=== PATIENT | male | born 1945 | race Caucasian/White ===

== ENCOUNTER 2018-06-02 05:46 | Emergency (ER) | payer MEDICARE, OTHER | END 2018-06-02 07:13 | disposition home or self-care (01) | LOC: FTE 05:46 | DX: R04.0 Epistaxis (principal) | CPT/HCPCS: 99282 ==

== ENCOUNTER 2018-06-02 08:55 | Emergency (ER) | payer MEDICARE, OTHER ==
[2018-06-02 10:17] LABS: ADD MAN DIFF? NO
[2018-06-02 10:22] LABS: BASOPHILS % 0.2 % (0.0-2.0); EOSINOPHILS # 0.3 10^3/ul (0.0-0.5); EOSINOPHILS % 5.2 % (0.0-7.0); HEMATOCRIT 41.7 % (42.0-52.0); HEMOGLOBIN 13.8 g/dl (14.0-18.0); LYMPHOCYTES # 1.3 10^3/ul (0.8-2.9); LYMPHOCYTES % 27.6 % (15.0-51.0); MEAN CORPUSCULAR HEMOGLOBIN 31.2 pg (29.0-33.0); MEAN CORPUSCULAR HGB CONC 33.1 g/dl (32.0-37.0); MEAN CORPUSCULAR VOLUME 94.3 fl (82.0-101.0); MEAN PLATELET VOLUME 9.7 fl (7.4-10.4); MONOCYTE # 0.5 10^3/ul (0.3-0.9); MONOCYTES % 9.8 % (0.0-11.0); NEUTROPHIL # 2.8 10^3/ul (1.6-7.5); NEUTROPHILS % 57.2 % (39.0-77.0); PLATELET COUNT 182 10^3/UL (140-415); RED BLOOD COUNT 4.42 10^6/ul (4.70-6.10); RED CELL DISTRIBUTION WIDTH 12.4 % (11.5-14.5)
[2018-06-02 10:22] LABS: WHITE BLOOD COUNT 4.8 10^3/ul (4.8-10.8)
[2018-06-02 10:41] LABS: INR 1.04; PROTIME 13.7 Sec (11.9-14.9); PT RATIO 1.1
== END 2018-06-02 11:51 | disposition home or self-care (01) ==
LOC: FTE 08:55
DX: R04.0 Epistaxis (principal)
CPT/HCPCS: 30903; 85025; 85610; 85730; 99283-25

== ENCOUNTER 2018-06-03 13:33 | Emergency (ER) | payer MEDICARE, OTHER | END 2018-06-03 14:41 | disposition home or self-care (01) | LOC: FTE 13:33 | DX: Z48.00 Encounter for change or removal of nonsurgical wound dressing (principal) | CPT/HCPCS: 99281 ==